=== PATIENT | female | born 1945 | race Caucasian/White ===

== ENCOUNTER 2018-02-25 13:37 | Inpatient (IN) | payer MEDICARE, OTHER ==
[2018-02-25 15:12] LABS: ADD MAN DIFF? NO
[2018-02-25 15:13] LABS: WHITE BLOOD COUNT 12.8 10^3/ul (4.8-10.8)
[2018-02-25 15:13] LABS: BASOPHILS % 0.2 % (0.0-2.0); EOSINOPHILS % 0.2 % (0.0-7.0); HEMATOCRIT 40.9 % (37.0-47.0); HEMOGLOBIN 13.4 g/dl (12.0-16.0); LYMPHOCYTES # 1.3 10^3/ul (0.8-2.9); LYMPHOCYTES % 10.2 % (15.0-51.0); MEAN CORPUSCULAR HEMOGLOBIN 29.1 pg (29.0-33.0); MEAN CORPUSCULAR HGB CONC 32.8 g/dl (32.0-37.0); MEAN CORPUSCULAR VOLUME 88.9 fl (82.0-101.0); MEAN PLATELET VOLUME 10.3 fl (7.4-10.4); MONOCYTE # 0.4 10^3/ul (0.3-0.9); MONOCYTES % 3.3 % (0.0-11.0); NEUTROPHILS % 85.8 % (39.0-77.0); PLATELET COUNT 313 10^3/UL (140-415); RED CELL DISTRIBUTION WIDTH 13.9 % (11.5-14.5)
[2018-02-25] MEDS: NITROGLYCERIN 2% 1 GM OINT PKT TD (15:17)
[2018-02-25] MEDS: ASPIRIN 81 MG TAB PO (15:17)
[2018-02-25 15:26] LABS: URINE BLOOD (Dip) POC 1+ (NEGATIVE); URINE GLUCOSE (Dip) POC Negative (NEGATIVE); URINE KETONES (Dip) POC Trace (NEGATIVE); URINE LEUKOCYTE EST (Dip) POC Negative (NEGATIVE); URINE NITRITE (Dip) POC Negative (NEGATIVE); URINE TOTAL PROTEIN POC 1+ (NEGATIVE)
[2018-02-25 15:26] LABS: URINE PH (Dip) POC 6.5 (5.0-8.5)
[2018-02-25 15:30] LABS: ALANINE AMINOTRANSFERASE 30 IU/L (13-69); ALBUMIN 4.6 g/dl (3.3-4.9); ALBUMIN/GLOBULIN RATIO 1.09; ALKALINE PHOSPHATASE 129 IU/L (42-121); ANION GAP 14 (5-13); ASPARTATE AMINO TRANSFERASE 34 IU/L (15-46); BILIRUBIN,INDIRECT 0.2 mg/dl (0-1.1); BILIRUBIN,TOTAL 0.2 mg/dl (0.2-1.3); BLOOD UREA NITROGEN 18 mg/dl (7-20); CALCIUM 9.7 mg/dl (8.4-10.2); CARBON DIOXIDE 23 mmol/L (21-31); CHLORIDE 103 mmol/L (97-110); CREATININE 0.56 mg/dl (0.44-1.00); GLUCOSE 145 mg/dl (70-220); POTASSIUM 4.2 mmol/L (3.5-5.1); SODIUM 140 mmol/L (135-144); TOTAL PROTEIN 8.8 g/dl (6.1-8.1)
[2018-02-25 15:33] LABS: INR 0.87; PARTIAL THROMBOPLASTIN TIME 31.8 Sec (23.0-35.0); PROTIME 11.9 Sec (11.9-14.9); PT RATIO 0.9
[2018-02-25 15:36] LABS: D-DIMER 974.87 ng/ml (<460)
[2018-02-25 15:42] LABS: TROPONIN-I < 0.012 ng/ml (0.000-0.120)
[2018-02-25] MEDS: SOD CHLORIDE 0.9% 1,000 ML IV (16:10)
[2018-02-25 16:11] LABS: B-TYPE NATRIURETIC PEPTIDE 76 PG/ML (0-125)
[2018-02-25] MEDS: SOD CHLORIDE 0.9% 100 ML (17:06)
[2018-02-25] MEDS: IOHEXOL 100 ML (17:06)
[2018-02-25] MEDS ORDERED: NITROGLYCERIN (SL) 0.4 MG TAB SL (19:30)
[2018-02-25] MEDS ORDERED: DOCUSATE SODIUM 100 MG CAP PO (19:30)
[2018-02-25] MEDS ORDERED: MAGNESIUM HYDROXIDE 30ML CUP PO (19:30)
[2018-02-25] MEDS ORDERED: LORAZEPAM 4 MG/ML VIAL IV (19:30)
[2018-02-25] MEDS ORDERED: ONDANSETRON 4 MG INJ IV (19:30)
[2018-02-25] MEDS ORDERED: NACL 0.9% 3 ML SYG IV (19:30)
[2018-02-25 19:59] LABS: HEMOGLOBIN A1C 8.1 % (0-5.9)
[2018-02-25] MEDS: KETOROLAC 15 MG INJ IV (20:13)
[2018-02-25] MEDS: INSULIN ASPART [NOVOLOG] 3 ML PEN SC (21:00)
[2018-02-25 21:46] LABS: CREATINE KINASE 62 IU/L (23-200)
[2018-02-25 21:58] LABS: CK INDEX 0.5; CK-MB 0.29 ng/ml (0.0-2.4); TROPONIN-I < 0.012 ng/ml (0.000-0.120)
[2018-02-25] MEDS ORDERED: GLUCAGON 1 MG INJ IM (22:00)
[2018-02-25] MEDS ORDERED: DEXTROSE 50% 50 ML SYRINGE IV ×2 (22:00)
[2018-02-25] MEDS ORDERED: GLUCOSE GEL 15 GRAM TUBE BUCCAL (22:00)
[2018-02-25] MEDS ORDERED: GLUCOSE GEL 15 GRAM TUBE PO ×2 (22:00)
[2018-02-25] MEDS: ATORVASTATIN 10 MG TAB PO (22:01)
[2018-02-26 01:00] LABS: CREATINE KINASE 65 IU/L (23-200)
[2018-02-26 01:13] LABS: CK INDEX 0.6; CK-MB 0.37 ng/ml (0.0-2.4); TROPONIN-I < 0.012 ng/ml (0.000-0.120)
[2018-02-26] MEDS: ACCU-CHEK XX (02:00)
[2018-02-26] MEDS: PANTOPRAZOLE 40 MG INJ IV (05:30)
[2018-02-26] MEDS: traMADol 50 MG TAB PO (05:31)
[2018-02-26 06:04] LABS: ADD MAN DIFF? NO
[2018-02-26 06:10] LABS: WHITE BLOOD COUNT 6.7 10^3/ul (4.8-10.8)
[2018-02-26 06:10] LABS: BASOPHILS % 0.3 % (0.0-2.0); EOSINOPHILS # 0.1 10^3/ul (0.0-0.5); EOSINOPHILS % 0.7 % (0.0-7.0); HEMATOCRIT 34.2 % (37.0-47.0); HEMOGLOBIN 11.3 g/dl (12.0-16.0); LYMPHOCYTES # 1.1 10^3/ul (0.8-2.9); LYMPHOCYTES % 16.5 % (15.0-51.0); MEAN CORPUSCULAR HEMOGLOBIN 29.5 pg (29.0-33.0); MEAN CORPUSCULAR VOLUME 89.3 fl (82.0-101.0); MEAN PLATELET VOLUME 10.6 fl (7.4-10.4); MONOCYTE # 0.4 10^3/ul (0.3-0.9); MONOCYTES % 5.2 % (0.0-11.0); NEUTROPHIL # 5.2 10^3/ul (1.6-7.5); PLATELET COUNT 236 10^3/UL (140-415); RED BLOOD COUNT 3.83 10^6/ul (4.20-5.40); RED CELL DISTRIBUTION WIDTH 14.2 % (11.5-14.5)
[2018-02-26 06:39] LABS: ANION GAP 10 (5-13); BLOOD UREA NITROGEN 23 mg/dl (7-20); CARBON DIOXIDE 24 mmol/L (21-31); CHLORIDE 107 mmol/L (97-110); CHOL/HDL RATIO 4.6 RATIO; CHOLESTEROL 175 mg/dl (100-200); GLUCOSE 151 mg/dl (70-220); HDL CHOLESTEROL 38 mg/dl (33-92); LDL CHOLESTEROL,CALCULATED 104 mg/dl; MAGNESIUM 2.1 mg/dl (1.7-2.5); POTASSIUM 3.9 mmol/L (3.5-5.1); SODIUM 141 mmol/L (135-144); TRIGLYCERIDES 166 mg/dl (0-149)
[2018-02-26] MEDS: INSULIN ASPART [NOVOLOG] 3 ML PEN SC ×5 (08:00→21:20)
[2018-02-26] MEDS: ASPIRIN 81 MG TAB PO (08:17)
[2018-02-26] MEDS: ENOXAPARIN 40 MG/0.4 ML SYG SC (08:22)
[2018-02-26 15:42] LABS: TROPONIN-I < 0.012 ng/ml (0.000-0.120)
[2018-02-26] MEDS: ACETAMINOPHEN 325 MG TAB PO (16:40)
[2018-02-26] MEDS: IBUPROFEN 400 MG TAB PO (16:40)
[2018-02-26] MEDS: INSULIN GLARGINE [LANTus] (100 UNITS/ML) SYG SC (20:00)
[2018-02-26] MEDS: ATORVASTATIN 20 MG TAB PO (21:11)
[2018-02-26 21:56] LABS: ADD UMIC YES; UR ASCORBIC ACID NEGATIVE (NEGATIVE); UR BILIRUBIN (Dip) NEGATIVE (NEGATIVE); UR BLOOD (Dip) 1+ mg/dL (NEGATIVE); UR CLARITY CLEAR (CLEAR); UR COLOR YELLOW (YELLOW); UR GLUCOSE (Dip) NEGATIVE (NEGATIVE); UR KETONES (Dip) NEGATIVE (NEGATIVE); UR LEUKOCYTE ESTERASE (Dip) NEGATIVE Leu/ul (NEGATIVE); UR MUCUS FEW /HPF (NONE SEEN); UR NITRITE (Dip) NEGATIVE (NEGATIVE); UR RBC 1 /HPF (0-5); UR SPECIFIC GRAVITY (Dip) 1.019 (1.003-1.030); UR TOTAL PROTEIN (Dip) NEGATIVE (NEGATIVE); UR UROBILINOGEN (Dip) NEGATIVE (NEGATIVE); UR WBC 1 /HPF (0-5)
[2018-02-27] MEDS: ACETAMINOPHEN 325 MG TAB PO (00:26)
[2018-02-27] MEDS: ACCU-CHEK XX (02:00)
[2018-02-27 05:41] LABS: ADD MAN DIFF? NO
[2018-02-27 05:42] LABS: BASOPHILS % 0.3 % (0.0-2.0); EOSINOPHILS # 0.1 10^3/ul (0.0-0.5); EOSINOPHILS % 0.7 % (0.0-7.0); HEMATOCRIT 33.5 % (37.0-47.0); HEMOGLOBIN 11.2 g/dl (12.0-16.0); LYMPHOCYTES # 1.3 10^3/ul (0.8-2.9); LYMPHOCYTES % 17.2 % (15.0-51.0); MEAN CORPUSCULAR HEMOGLOBIN 29.6 pg (29.0-33.0); MEAN CORPUSCULAR HGB CONC 33.4 g/dl (32.0-37.0); MEAN CORPUSCULAR VOLUME 88.6 fl (82.0-101.0); MEAN PLATELET VOLUME 10.3 fl (7.4-10.4); MONOCYTE # 0.4 10^3/ul (0.3-0.9); MONOCYTES % 5.5 % (0.0-11.0); NEUTROPHIL # 5.8 10^3/ul (1.6-7.5); PLATELET COUNT 218 10^3/UL (140-415); RED BLOOD COUNT 3.78 10^6/ul (4.20-5.40)
[2018-02-27 05:42] LABS: WHITE BLOOD COUNT 7.6 10^3/ul (4.8-10.8)
[2018-02-27 06:12] LABS: ANION GAP 12 (5-13); BLOOD UREA NITROGEN 20 mg/dl (7-20); CALCIUM 8.7 mg/dl (8.4-10.2); CARBON DIOXIDE 24 mmol/L (21-31); CHLORIDE 104 mmol/L (97-110); CREATININE 0.47 mg/dl (0.44-1.00); GLUCOSE 162 mg/dl (70-220); MAGNESIUM 2.1 mg/dl (1.7-2.5); POTASSIUM 3.5 mmol/L (3.5-5.1); SODIUM 140 mmol/L (135-144)
[2018-02-27] MEDS: INSULIN GLARGINE [LANTus] (100 UNITS/ML) SYG SC (07:53)
[2018-02-27] MEDS: INSULIN ASPART [NOVOLOG] 3 ML PEN SC ×4 (07:53→21:00)
[2018-02-27] MEDS: ASPIRIN 81 MG TAB PO (08:55)
[2018-02-27] MEDS: ENOXAPARIN 40 MG/0.4 ML SYG SC (08:58)
[2018-02-27] MEDS: REGADENOSON 0.4 MG/5 ML SYG (12:15)
[2018-02-27] MEDS: ATORVASTATIN 20 MG TAB PO (21:15)
[2018-02-28] MEDS: traMADol 50 MG TAB PO ×2 (01:30→14:11)
[2018-02-28] MEDS: ACCU-CHEK XX (02:00)
[2018-02-28 05:50] LABS: ADD MAN DIFF? NO
[2018-02-28 05:52] LABS: WHITE BLOOD COUNT 6.3 10^3/ul (4.8-10.8)
[2018-02-28 05:52] LABS: BASOPHILS % 0.3 % (0.0-2.0); EOSINOPHILS # 0.1 10^3/ul (0.0-0.5); EOSINOPHILS % 2.2 % (0.0-7.0); HEMATOCRIT 33.1 % (37.0-47.0); LYMPHOCYTES # 1.8 10^3/ul (0.8-2.9); LYMPHOCYTES % 27.9 % (15.0-51.0); MEAN CORPUSCULAR HEMOGLOBIN 29.5 pg (29.0-33.0); MEAN CORPUSCULAR HGB CONC 33.2 g/dl (32.0-37.0); MEAN CORPUSCULAR VOLUME 88.7 fl (82.0-101.0); MEAN PLATELET VOLUME 10.5 fl (7.4-10.4); MONOCYTE # 0.4 10^3/ul (0.3-0.9); NEUTROPHIL # 3.9 10^3/ul (1.6-7.5); NEUTROPHILS % 62.1 % (39.0-77.0); PLATELET COUNT 233 10^3/UL (140-415); RED BLOOD COUNT 3.73 10^6/ul (4.20-5.40); RED CELL DISTRIBUTION WIDTH 13.8 % (11.5-14.5)
[2018-02-28 06:38] LABS: ANION GAP 7 (5-13); BLOOD UREA NITROGEN 20 mg/dl (7-20); CALCIUM 8.8 mg/dl (8.4-10.2); CARBON DIOXIDE 26 mmol/L (21-31); CHLORIDE 107 mmol/L (97-110); CREATININE 0.51 mg/dl (0.44-1.00); GLUCOSE 170 mg/dl (70-220); POTASSIUM 3.7 mmol/L (3.5-5.1); SODIUM 140 mmol/L (135-144)
[2018-02-28] MEDS: INSULIN GLARGINE [LANTus] (100 UNITS/ML) SYG SC (07:53)
[2018-02-28] MEDS: INSULIN ASPART [NOVOLOG] 3 ML PEN SC ×2 (07:53→12:00)
[2018-02-28] MEDS: ASPIRIN 81 MG TAB PO (09:07)
[2018-02-28] MEDS: ENOXAPARIN 40 MG/0.4 ML SYG SC (09:09)
[2018-02-28] MEDS ORDERED: LORAZEPAM 2 MG INJ IV (11:00)
[2018-02-28] MEDS: INFLUENZA VIRUS VACCINE 0.5 ML (DISPENSING) IM* (13:59)
[2018-03-01 14:25] LABS: INFLUENZA VIRUS A/B SOURCE SWAB
== END 2018-02-28 17:40 | disposition home or self-care (01) | DRG 206 ==
LOC: E/R 13:37 → 6WM 17:46
DX: M94.0 Chondrocostal junction syndrome [Tietze] (principal); E11.9 Type 2 diabetes mellitus without complications; I10 Essential (primary) hypertension; E78.5 Hyperlipidemia, unspecified; R50.9 Fever, unspecified; R07.9 Chest pain, unspecified; Z23 Encounter for immunization
CPT/HCPCS: 36415; 71045; 71275; 78452; 80048; 80053; 80061; 81001; 81003; 82550; 82553; 82962; 83036; 83735; 83880; 84443; 84484; 85025; 85378; 85610; 85730; 87040; 87086; 87502; 90686; 93005; 93017; 93306; 93970; 99285-25; G0378